=== PATIENT | male | born 1980 | race Caucasian/White ===

== ENCOUNTER 2019-02-26 05:54 | Day surgery (SDC) | payer OTHER ==
[~2019-02-26] VITALS: Ht 182.9 cm; Wt 135.6 kg
[~2019-02-26 05:54] MED LIST: BISA-42 PO; HYDR-2765 PO; MELA1TAB13 PO; MULT-730 PO; NYST15CR2 TP; OXYC1TAB15 PO; RANI150T2 PO; SIMV20TA18 PO; TRAZ-86 PO; WARF-78 PO
[2019-02-26] MEDS ORDERED: ceFAZolin SODIUM 3 GM in IV DEXTROSE 5% 100ML 100 ML IV PRN (06:00)
[2019-02-26] MEDS ORDERED: BUPIVACAINE-EPI 0.5%-1:200000 MPF 30 ML VIAL. INJ ONE (06:00)
[2019-02-26] MEDS ORDERED: HYDROmorphone 2 MG/ML VIAL IV PRN (07:00)
[2019-02-26] MEDS ORDERED: fentaNYL PF VIAL 100 MCG/2 ML VIAL IV PRN (07:00)
[2019-02-26] MEDS ORDERED: IV RINGERS,LACTATED 1000ML 1,000 ML IV SCH (07:00)
[2019-02-26] MEDS ORDERED: PROCHLORPERAZINE 10 MG/2 ML VIAL. IV PRN (07:00)
[2019-02-26] MEDS ORDERED: ONDANSETRON PF 4 MG/2 ML VIAL. IV PRN (07:00)
[2019-02-26] MEDS ORDERED: MORPHINE SULFATE 2 MG/ML VIAL. IV PRN (07:00)
[2019-02-26] MEDS ORDERED: LIDOCAINE 1% PF 2 ML VIAL. ID PRN (07:00)
[2019-02-26] MEDS ORDERED: DEXAMETHASONE SOD PHOS 4 MG/ML VIAL ONE ×2 (07:01→07:34)
[2019-02-26] MEDS ORDERED: fentaNYL PF VIAL 100 MCG/2 ML VIAL ONE (07:01)
[2019-02-26] MEDS ORDERED: PROPOFOL 20 ML IV ONE (07:01)
[2019-02-26] MEDS ORDERED: MIDAZOLAM HCL/PF 2 MG/2 ML VIAL. ONE (07:01)
[2019-02-26] MEDS ORDERED: ONDANSETRON PF 4 MG/2 ML VIAL. ONE (07:01)
[2019-02-26] MEDS ORDERED: LIDOCAINE 1% PF 5 ML VIAL. ONE (07:01)
[2019-02-26] MEDS ORDERED: SUCCINYLCHOLINE 200 MG/10 ML VIAL. ONE (07:03)
[2019-02-26] MEDS ORDERED: OXYC1TAB19 PO (07:09)
[2019-02-26] MEDS ORDERED: FAMOTIDINE 20 MG/2 ML VIAL ONE (07:27)
--- NOTE | 2019-02-26 07:33 | DISCH ---
DISCHARGE INSTRUCTIONS Condition on Discharge Condition on Discharge: Stable Activity After Discharge Activity Instructions for Disc: Activity as tolerated (slow advance to activity as tolerated), Progressive ambulation Exercise Instruction after Dis: Progress as tolerated Weight Bearing Status after Di: As tolerated Diet after Discharge Diet after Discharge: Regular Wound Incision Care Wound/Incision Care: Change dressing (a remove dressing in 2 days may then shower or soak as long as no drainage is observed) Contacting the [facility] after DC Call your doctor for: Concerns you may have Follow-Up Follow up with: Dr. Cross 7-10 days FRANCISCO CROSS MD Feb 26, 2019 07:33
[2019-02-26] MEDS ORDERED: KETOROLAC 30 MG/ML VIAL. ONE (07:54)
[2019-02-26] MEDS ORDERED: KETAMINE HCL IN NACL, ISO-OSM 50 MG/5 ML SYRINGE ONE (07:54)
[2019-02-26] MEDS ORDERED: SEVOFLURANE 31 TO 60 MINUTES. IH ONE (08:24)
[2019-02-26] MEDS: fentaNYL PF VIAL 100 MCG/2 ML VIAL IV PRN ×2 (08:44→08:55)
[2019-02-26] MEDS ORDERED: oxyCODONE/APAP 7.5/325 1 TAB TABLET PO ONE (08:45)
[2019-02-26 09:10] VITALS: BP 141/78
--- NOTE | 2019-02-26 15:22 | PDOC4 ---
Operative Note Operative Note Date of surgery: 02/26/2019 Preoperative diagnosis: Left medial meniscus tear Postoperative diagnosis: Same plus chondral flap tear medial femoral condyle Operative procedure: Left knee arthroscopy partial medial meniscectomy chondroplasty medial femoral condyle Surgeon: [place] Anesthesia: Gen. Estimated blood loss: 5 mL Complications: None Operative indications: Please see my orthopedic clinic note for detailed operative indications and note that he did have an MRI medial meniscus tear which was consistent with his sharp medial joint line symptoms particularly with twisting pivoting or uneven ground that were recurrent and increased with activity. I structure and function meniscus the rationale for evaluating and removing the damaged part of the meniscus which was potentially flipping the wrong way in the joint the possibility that I may not be able to do anything about [id number] that we would find of the joint which seemed based on MRI to be minimal and that I would address any other pathology as appropriate he is aware the possible risks of infection continued pain nerve or blood vessel damage medical or other anesthetic complications among others and wishes to proceed with surgical evaluation and treatment. Operative text: Patient was identified procedure verified patient placed in the supine position on the operating table. After adequate amounts of general anesthesia were administered the left lower extremity was prepped and draped in standard sterile fashion with a thigh tourniquet and after timeout was performed patient procedure identified and verified left leg was exsanguinated by Esmarch bandage tourniquet inflated to 350 mmHg a lateral portal was established a medial portal established using spinal needle localization and the knee joint was systematically examined. He was found to have good patellofemoral tracking with minimal chondromalacia very small floating cartilage fragments in the suprapatellar pouch and gutters which were readily evacuated with arthroscopic shaver he was found to have a displaceable tear of the posterior horn and body junction area of the medial meniscus which was trimmed back to stable tissue using arthroscopic punch and shaver. This was trimmed back to stable tissue and radiused appropriately to avoid any further stress risers weightbearing surface of the medial femoral condyle and tibial plateau were noted to be in good condition aside from a chondral flap tear at the lateral aspect of the medial femoral condyle and this was lightly trimmed back to stable tissue with the arthroscopic shaver found to be a partial-thickness defect and involve approximately a 1 cm x 7-8 mm oval area on the lateral aspect of the weightbearing surface medial femoral condyle anteriorly. ACL was probed and found to be intact as was the lateral meniscus. Gutters and suprapatellar pouch were again evaluated for loose bodies and were drained of arthroscopic fluid. Portals were closed with Monocryl suture and Dermabond fat pad and surrounding portal areas subcutaneously were injected with half percent plain Marcaine sterile dressings were applied patient was returned recovery room in stable condition having tolerated procedure well toes were noted to be warm and pink following deflation of the tourniquet FRANCISCO EARLY MD Feb 26, 2019 15:22
== END 2019-02-26 09:27 | disposition home or self-care (01) ==
LOC: SURG 05:54
PROVIDERS: ATTEND Orthopaedic Surgery
DX: S83.242A Other tear of medial meniscus, current injury, left knee, initial encounter (principal); E66.9 Obesity, unspecified; I10 Essential (primary) hypertension; E78.00 Pure hypercholesterolemia, unspecified; K21.9 Gastro-esophageal reflux disease without esophagitis; Z87.39 Personal history of other diseases of the musculoskeletal system and connective tissue; Z68.38 Body mass index [BMI] 38.0-38.9, adult; Z96.651 Presence of right artificial knee joint
CPT/HCPCS: 29881; A7015; C1782; J1100; J1885; J2250; J2405; J2704; J3010; J3490; J0330